=== PATIENT | male | born 1995 | race Caucasian/White ===

== ENCOUNTER 2020-04-11 17:19 | Emergency (ER) | payer BC, SELFPAY ==
[2020-04-11 17:24] VITALS: BP 136/85; PULSE 73; RESP 14; TEMP 36.1; O2SAT 98; BMI 24.4
[2020-04-11] MEDS: TET,DIPH,PERTUSS(ACELL),VAC/PF 0.5 ML SYRINGE IM (17:49)
[2020-04-11 18:07] VITALS: BP 145/85; PULSE 76; RESP 16; O2SAT 97
--- NOTE | 2020-04-11 18:15 | ED_ITS ---
HPI - Wound/Laceration General Chief Complaint: Wound/Laceration Stated Complaint: LEFT INDEX FINGER CUT Time Seen by Provider: 04/11/20 18:03 Source: patient Mode of arrival: Ambulatory Limitations: no limitations History of Present Illness HPI narrative: Otherwise healthy 25-year-old male here for evaluation of a cut to his left index finger. 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 It is a very superficial cut although he states he does not know when his last tetanus shot was. He is here for a tetanus shot. Related Data Allergies Allergy/AdvReac Type Severity Reaction Status Date / Time amoxicillin Allergy Verified 04/11/20 17:24 Penicillins Allergy Verified 04/11/20 17:24 Sulfa (Sulfonamide Allergy Verified 04/11/20 17:24 Antibiotics) Review of Systems Constitutional Constitutional: Denies fever(s) Musculoskeletal Musculoskeletal: Denies arthralgias, Denies myalgias and Denies tingling Integumentary/Breasts Comments: Cut left index finger Neurologic Neurologic: Denies tingling Hematologic/Lymphatic On Anticoagulants: No Patient History Medical History Healthy adult Social History lives independently: Yes Exam Initial Vital Signs Initial Vital Signs: Vital Signs Temperature 97.0 F L 04/11/20 17:24 Pulse Rate 73 04/11/20 17:24 Respiratory Rate 14 04/11/20 17:24 Blood Pressure 136/85 04/11/20 17:24 Pulse Oximetry 98 04/11/20 17:24 Const General: cooperative and comfortable Limitations: mental status not altered Skin Other: Patient with a 2 cm superficial cut to the pad of the left index finger. There is no active bleeding. Neuro General: patient alert and patient awake Extrem Other: Full range of motion left index finger Course Orders Ordered: Discontinued Medications Diphtheria/Tetanus/Acell Pertussis (Tet,Diph,Pertuss(Acell),Vac/Pf 0.5 Ml Syringe) 0.5 ml IM .ONCE ONE Stop: 04/11/20 17:28 Last Admin: 04/11/20 17:49 Dose: 0.5 ml Documented by: BTONER Vital Signs Vital signs: Vital Signs - 8 hr 04/11/20 17:24 04/11/20 18:07 Temperature 97.0 F L Pulse Rate 73 76 Respiratory Rate 14 16 Blood Pressure 136/85 145/85 H Pulse Oximetry 98 97 MDM - Wound/Laceration MDM Narrative Medical decision making narrative: The laceration is very superficial in needs no intervention here in the ER. His tetanus was updated. He is given return precautions and follow-up instructions. He expressed understanding and agreement. Discharge Plan Departure Patient Disposition: Home Clinical Impression: Laceration Instructions: DI for Minor Laceration Activity Restrictions/Additional Instructions: Your tetanus was updated today. You can wash your hands like normal. Return to the emergency department for any new or worsening symptoms
--- NOTE | 2020-04-11 18:18 | PC.NURSE ---
pt cleaned at the time, appears closed.
== END 2020-04-11 18:23 | disposition home or self-care (01) ==
PROVIDERS: Emergency Provider Emergency Medicine
DX: S61.211A Laceration without foreign body of left index finger without damage to nail, initial encounter (principal); W45.8XXA Other foreign body or object entering through skin, initial encounter; Z23 Encounter for immunization
CPT/HCPCS: 90471; 99281; 99283; 90715

== ENCOUNTER 2022-12-28 19:54 | Emergency (ER) | payer BC, SELFPAY ==
[2022-12-28 19:58] VITALS: BP 160/86; PULSE 81; RESP 18; TEMP 36.7; O2SAT 97; BMI 23.7
--- NOTE | 2022-12-28 20:10 | PC.NURSE ---
pt c/o noticing bright red blood after a bowel movement yesterday once and then again today once, denies any dizziness, no n/v
[2022-12-28 21:00] VITALS: BP 121/80; PULSE 71; RESP 18; O2SAT 96
[2022-12-28 22:00] VITALS: BP 134/87; PULSE 77; RESP 18; O2SAT 98
--- NOTE | 2022-12-28 22:05 | ED_ITS ---
HPI - GI Bleed General Chief complaint: GI Bleed Stated complaint: GI bleed Time Seen by Provider: 12/28/22 21:54 Source: patient Mode of arrival: Ambulatory History of Present Illness HPI Narrative: Patient is a healthy 27 old male her slowly started sertraline had 1 episode of loose stool and some blood mixed in his diarrhea. He reports that later he had a more formed bowel movement that was not bloody and then this evening had anoth er soft but formed bowel movement and then had blood dripping from his. The blood had stopped after he wiped. He has no abdominal cramping no nausea no vomiting no fever. He is not on any antiplatelet or anticoagulation medication. He reports that mom and sister have had colon polyps. Grandmother has history of colon cancer. He denies any dizziness lightheadedness or shortness breath. He has had no further bleeding but is worried. Related Data Allergies Allergy/AdvReac Type Severity Reaction Status Date / Time amoxicillin Allergy Verified 04/11/20 17:24 Penicillins Allergy Verified 04/11/20 17:24 Sulfa (Sulfonamide Allergy Verified 04/11/20 17:24 Antibiotics) Review of Systems Review of Systems ROS Unobtainable: All systems reviewed & are unremarkable except as noted in HPI and below Patient History Medical History Healthy adult Social History lives independently: Yes Smoking Status: Current every day smoker Smoking Status: Current every day smoker tobacco type: vaping Substance Use Type: does not use Exam Initial Vital Signs Initial Vital Signs: Vital Signs Temperature 98.1 F 12/28/22 19:58 Pulse Rate 81 12/28/22 19:58 Respiratory Rate 18 12/28/22 19:58 Blood Pressure 160/86 H 12/28/22 19:58 Pulse Oximetry 97 12/28/22 19:58 Oxygen Delivery Method Room Air 12/28/22 19:58 GENERAL: Well-appearing, well-nourished and in no acute distress. CARDIOVASCULAR: peripheral pulses in tact, cap refill <2 sec RESPIRATORY: No respiratory distress, speaks in full sentences without difficulty ABDOMEN: Soft, nontender, no guarding or rebound Rectal: No external hemorrhoids no internal hemorrhoids immediate stinging upon finger insertion. Trace Hemoccult positive no gross blood EXTREMITIES: Normal range of motion, no clubbing or edema. Neurovascularly intact NEUROLOGICAL: Cranial nerves II through XII grossly intact. Normal gait and speech. SKIN: Warm, dry, no petechiae, no rashes or lesions. Course Vital Signs Vital signs: Vital Signs - 8 hr 12/28/22 19:58 12/28/22 21:00 12/28/22 22:00 Temperature 98.1 F Pulse Rate 81 71 77 Respiratory Rate 18 18 18 Blood Pressure 160/86 H 121/80 134/87 Pulse Oximetry 97 96 98 Oxygen Delivery Method Room Air Room Air MDM - GI Bleed MDM Narrative Medical decision making narrative: Patient healthy 27-year-old male presents with a couple episodes of some bleeding from his rectum mixed with stool. Giving has now stopped. His vitals are stable his abdomen is soft and nontender no evidence of an acute abdomen peritoneal signs. He is not had gastroenteritis like symptoms. He recently started sertraline which can cause diarrhea but the diarrhea was about 1 episode and now he is having soft formed stool. Upon physical exam digital rectal induced stinging burning pain in the skin. I suspect with minimal amount of bleeding after straining and some stinging that patient has a rectal fissure. There were no obvious external internal hemorrhoids. Not on any anticoagulation. This time I really see no need for any further workup or imaging. However I do recommend he have an outpatient colonoscopy. He is given strict return precautions. Discharge Plan Departure Patient Disposition: Home Clinical Impression: Rectal fissure Instructions: Anal Fissure Activity Restrictions/Additional Instructions: *You have been diagnosed with anal fissure *What to do: At this time go home and monitor bleeding. It should be stopping now. I do think you have a fissure. Nonetheless I do recommend outpatient colonoscopy. Non emergently but please schedule with your PCP. *Continue to take medications as directed *Follow up with your primary care provider in 2-3 days or call [phone] *Return to ER if you should have persistent rectal bleeding dizziness lightheadedness or any new, worsening or concerning symptoms Stand Alone Forms: Patient Portal/API
== END 2022-12-28 22:17 | disposition home or self-care (01) ==
PROVIDERS: Emergency Provider Emergency Medicine
DX: K60.2 Anal fissure, unspecified (principal)
CPT/HCPCS: 36415; 99282; 99283